=== PATIENT | female | born 1975 | race Caucasian/White ===

== ENCOUNTER → 2019-12-13 10:55 | Outpatient (CLI) | payer OTHER, SELFPAY ==
[2019-12-13 11:56] LABS: Alanine Aminotransferase 27 IU/L (<35); Albumin 4.7 g/dL (3.5-5.0); Albumin Globulin Ratio 1.4 (1.0-2.8); Alkaline Phosphatase 50 U/L (38-126); Aspartate Aminotransferase 28 IU/L (14-36); BUN Creatinine Ratio 16.9 (6-22); Bilirubin Total 0.7 mg/dL (0.2-1.3); Blood Urea Nitrogen 12 mg/dL (7-17); Calcium 9.4 mg/dL (8.4-10.2); Carbon Dioxide 28 mmol/L (22-32); Chloride 104 mmol/L (98-107); Estimated Glomerular Filt Rate > 60.0 mL/min (>60); Globulin 3.3 g/dL (1.7-4.1); Glucose 93 mg/dL (70-100); HEMOLYSIS < 15 (0-50); Lipase 429 U/L (23-300); Potassium 4.4 mmol/L (3.4-5.1); Sodium 140 mmol/L (137-145)
== END ==
PROVIDERS: PCP Registered Nurse; Referring Provider Registered Nurse; Visit Provider Registered Nurse
DX: R74.8 Abnormal levels of other serum enzymes (principal); K21.9 Gastro-esophageal reflux disease without esophagitis
CPT/HCPCS: 36415; 80053; 83690

== ENCOUNTER → 2019-12-19 09:06 | Outpatient (CLI) | payer OTHER, SELFPAY ==
--- NOTE | 2019-12-19 09:08 | DI.US.S_ITS ---
PROCEDURE: US ABDOMEN COMPLETE INDICATIONS: PANCREATITIS TECHNIQUE: Real-time scanning was performed of the abdominal and retroperitoneal organs, with image documentation. COMPARISON: None. FINDINGS: Liver: Liver is normal in size and homogeneous in echotexture. Gallbladder: The gallbladder wall measures 1.4 mm in diameter. No sludge, stones, pericholecystic fluid, or sonographic Heath sign. Biliary ducts: Intrahepatic bile ducts are non-dilated. Extrahepatic bile duct caliber measures 1.5 mm. Normal is 6-7 mm or less in diameter, or 10 mm or less post-cholecystectomy. Pancreas: Visualized portions of the pancreas are sonographically normal. Spleen: Spleen is normal in size and homogeneous in echotexture. Kidneys: Kidneys are normal in size and echotexture. Right kidney measures 11.0 cm long; left kidney measures 10.1 cm long. No hydronephrosis or nephrolithiasis. No solid masses. Aorta: Visualized aorta is normal in caliber at less than 3 cm. Iliacs: Proximal common iliac arteries are normal in caliber at less than 2.5 cm. IVC: Intrahepatic inferior vena cava is patent. Miscellaneous: No free abdominal fluid. IMPRESSION: 1. No cholelithiasis or findings to suggest choledocholithiasis or acute cholecystitis. Dictated by: Lula Finnegan M.D. on 12/19/2019 at 10:46 Approved by: Lula Finnegan M.D. on 12/19/2019 at 10:48
[2019-12-19 09:45] LABS: Add Manual Diff / Slide Review NO; Basophils Absolute Auto 0 /uL (0-100); Basophils Percent Auto 0.4 % (0-2); Eosinophils Absolute Auto 100 /uL (0-450); Hematocrit 40.8 % (36-46); Hemoglobin 13.4 g/dL (12.0-16.0); Lymphocytes Absolute Auto 1900 /uL (1100-4500); Lymphocytes Percent Auto 24.6 % (25-40); Mean Corpuscular HGB Conc 32.8 % (30-36); Mean Corpuscular Hemoglobin 29.7 PG (26-34); Mean Corpuscular Volume 90.5 fL (80-100); Monocytes Absolute Auto 500 /uL (0-900); Monocytes Percent Auto 5.9 % (3-14); Neutrophils Absolute Auto 5300 /uL (1500-7000); Neutrophils Percent Auto 68.1 % (50-75); Platelet Count 247 X10^3/uL (150-400); Red Cell Distribution Width 12.9 % (11.6-14.8); White Blood Cell Count 7.8 X10^3/uL (4.5-11.0)
[2019-12-19 10:23] LABS: C-Reactive Protein Quant < 0.5 mg/dL (<1.0)
== END ==
PROVIDERS: PCP Registered Nurse; Referring Provider Registered Nurse; Visit Provider Registered Nurse
DX: K85.90 Acute pancreatitis without necrosis or infection, unspecified (principal)
CPT/HCPCS: 36415; 76700; 85025; 86140

== ENCOUNTER → 2020-02-21 14:05 | Outpatient (CLI) | payer OTHER, SELFPAY ==
--- NOTE | 2020-02-21 14:06 | DI.MG.S_ITS ---
BILATERAL DIGITAL DIAGNOSTIC MAMMOGRAM 3D/2D: 02/21/2020 CLINICAL: Bilateral breast pain. Comparison is made to exams dated: 10/13/2016 mammogram and 10/21/2019 mammogram - outside location. The tissue of both breasts is extremely dense, which lowers the sensitivity of mammography. No significant masses, calcifications, or other findings are seen in either breast. Specifically, no finding to explain the patient's pain. IMPRESSION: NEGATIVE There is no abnormality seen in either breast to correspond with the diffuse pain. There is no mammographic evidence of malignancy. Return to annual mammogram screening schedule is recommended. Findings and recommendations were conveyed to the patient at time of exam. This exam was interpreted at Station ID: [id number]. NOTE: For mammograms, a report in lay terms will be sent to the patient. Approximately 15% of breast malignancies will not be visualized mammographically. In the management of a palpable breast mass, a negative mammogram must not discourage biopsy of a clinically suspicious lesion. Electronically Signed By: Cady robert/:02/21/2020 14:52:49 letter sent: Normal Exam ACR BI-RADS Category 1: Negative 3341F
== END ==
PROVIDERS: PCP Registered Nurse; Referring Provider Registered Nurse; Visit Provider Registered Nurse
DX: N64.4 Mastodynia (principal)
CPT/HCPCS: 77066; G0279

== ENCOUNTER 2020-12-14 18:55 | Emergency (ER) | payer OTHER, SELFPAY ==
[2020-12-14 19:12] VITALS: BP 130/80; PULSE 73; RESP 14; TEMP 36.8; O2SAT 100; BMI 22.9
[2020-12-14 20:05] LABS: Pregnancy Test Urine Negative (Negative)
[2020-12-14 20:23] LABS: Bacteria Urine None Seen; Culture Indicated Urine Cult Not Indicated; Mucus Urine 1+ (Negative); RBC Urine 0-1/HPF (0-5/HPF); Squamous Epithelial Cell Urine 0-1 /HPF (0-5/HPF); Transitional Epi Cells Urine 0-1/HPF (0-5/HPF); WBC Urine 0-1/HPF (0-5/HPF)
--- NOTE | 2020-12-14 21:07 | DI.US.S_ITS ---
PROCEDURE: US ABDOMEN COMPLETE INDICATIONS: ABDOMINAL PAIN TECHNIQUE: Real-time scanning was performed of the abdominal and retroperitoneal organs, with image documentation. COMPARISON: [facility], [place], US ABDOMEN COMPLETE, 12/19/2019, 9:24. FINDINGS: Liver: Liver is normal in size and homogeneous in echotexture. Gallbladder: No stones or wall thickening are identified. Wall thickness measures 1.8 mm. Biliary ducts: Intrahepatic bile ducts are non-dilated. Extrahepatic bile duct caliber measures 3.6 mm. Normal is 6-7 mm or less in diameter, or 10 mm or less post-cholecystectomy. Pancreas: Visualized portions of the pancreas are sonographically normal. Spleen: Spleen is normal in size and homogeneous in echotexture. Kidneys: Kidneys are normal in size and echotexture. Right kidney measures 11.0 cm long; left kidney measures 9.8 cm long. No hydronephrosis or nephrolithiasis. There is a focus of increased echogenicity within the mid left kidney measuring approximately 3 x 3 x 3 mm. Aorta: Visualized aorta is normal in caliber at less than 3 cm. Iliacs: Proximal common iliac arteries are normal in caliber at less than 2.5 cm. IVC: Intrahepatic inferior vena cava is patent. Miscellaneous: No free abdominal fluid. IMPRESSION: 1. Subcentimeter focus of increased echogenicity within the left kidney as above suspicious for angiomyolipoma. It was not identified on the 12/19/2019 abdomen ultrasound exam. Further evaluation with CT is recommended as indicated. The above findings are concordant with preliminary report. Dictated by: Magdalena Santizo M.D. on 12/15/2020 at 10:17 Approved by: Magdalena Santizo M.D. on 12/15/2020 at 10:19
[2020-12-14 21:30] VITALS: BP 116/68; PULSE 77; RESP 17; O2SAT 99
[2020-12-14 21:44] LABS: Alanine Aminotransferase 28 IU/L (<35); Albumin 4.8 g/dL (3.5-5.0); Albumin Globulin Ratio 1.4 (1.0-2.8); Alkaline Phosphatase 52 U/L (38-126); Aspartate Aminotransferase 35 IU/L (14-36); BUN Creatinine Ratio 17.2 (6-22); Blood Urea Nitrogen 10 mg/dL (7-17); Calcium 9.4 mg/dL (8.4-10.2); Carbon Dioxide 23 mmol/L (22-32); Chloride 102 mmol/L (98-107); Estimated Glomerular Filt Rate > 60.0 mL/min (>60); Globulin 3.4 g/dL (1.7-4.1); Glucose 79 mg/dL (70-100); HEMOLYSIS 33 (0-50); Lipase 245 U/L (23-300); Sodium 137 mmol/L (137-145); Total Protein 8.2 g/dL (6.3-8.2)
[2020-12-14 21:51] LABS: Add Manual Diff / Slide Review NO; Basophils Absolute Auto 0 /uL (0-100); Basophils Percent Auto 0.7 % (0-2); Eosinophils Absolute Auto 200 /uL (0-450); Eosinophils Percent Auto 2.8 % (2-4); Hematocrit 38.6 % (36-46); Hemoglobin 12.9 g/dL (12.0-16.0); Lymphocytes Absolute Auto 2600 /uL (1100-4500); Mean Corpuscular HGB Conc 33.5 % (30-36); Mean Corpuscular Hemoglobin 30.4 PG (26-34); Mean Corpuscular Volume 90.6 fL (80-100); Monocytes Absolute Auto 500 /uL (0-900); Monocytes Percent Auto 8.5 % (3-14); Neutrophils Absolute Auto 2800 /uL (1500-7000); Platelet Count 247 X10^3/uL (150-400); Red Blood Cell Count 4.26 X10^6/uL (4.0-5.2); Red Cell Distribution Width 12.8 % (11.6-14.8); White Blood Cell Count 6.1 X10^3/uL (4.5-11.0)
[2020-12-14 22:30] VITALS: BP 108/72; PULSE 76; RESP 18; O2SAT 98
[2020-12-14 23:30] VITALS: BP 112/65; PULSE 76; RESP 16; O2SAT 99
--- NOTE | 2020-12-15 00:15 | ED_ITS ---
HPI - General Adult General Chief complaint: Abdominal Pain Stated complaint: Possible Bladder Infection, Sent From Urgent in [place] Time Seen by Provider: 12/15/20 00:15 Source: patient Mode of arrival: Ambulatory Limitations: no limitations History of Present Illness HPI narrative: 45-year-old woman with a history of mild reflux presents with diffuse abdominal pain is been present for the last 72 hours. Typically more on the left side but she has noticed on both sides. Significant decreased appetite but is able to continue drinking clear liquids. She has been having difficulty sleeping the last few nights because of the pain. She did not have a bowel movement yesterday but noted that she did this morning and it did not influence her pain. It was slightly loose but not actually diarrhea, she describes no vomiting. No fevers, chest pain, dyspnea cough, orthopnea, lower extremity edema, headaches. Related Data Home Medications Medication Instructions Recorded Confirmed vitamin A 1 applictn TOP DAILY gram 12/13/19 09/14/20 Previous Rx's Medication Instructions Recorded cetirizine 10 mg tablet (Zyrtec) 10 mg PO DAILY 30 Days #30 tab 09/14/20 hydrocortisone 1 % topical 1 applic TOPICAL BID PRN #30 g 09/14/20 ointment (Anti-Itch (hydrocortisone)) Allergies Allergy/AdvReac Type Severity Reaction Status Date / Time clindamycin Allergy Verified 12/14/20 19:14 esomeprazole [From Nexium] Allergy Verified 12/14/20 19:14 Review of Systems Review of Systems Narrative: Remainder of complete review of systems is otherwise unremarkable except for that included in the HPI. Patient History Medical History Allergic rhinitis (~2014) Chicken pox (~1985) Dermatitis GERD (gastroesophageal reflux disease) (~2009) Hearing loss Hypothyroidism (~1991) Osteoarthritis (~2017) Seborrheic dermatitis (~2010) Surgical History Anesthesia History of eye surgery (~2006) Family History Mother Hypertension History of heart disease Sister Rucker's palsy Grandfather History of heart disease Hypertension Grandmother Hypertension Grandmother Cancer Social History Smoking Status: Never smoker Smoking Status: Never smoker alcohol intake frequency: holidays/special occasions only Substance Use Type: does not use Exam Narrative Exam Narrative: General: Healthy appearing, in no acute distress. Able to give a complete and coherent history. Well-nourished well-developed HEENT: Moist mucous membranes, normal sclera with reactive pupils, Neck: No JVD, supple Respiratory: Lungs are clear to auscultation, no wheezing no rales no rhonchi. Full and symmetrical air movement Cardiac: Regular rate and rhythm no murmurs no bruits Abdomen: Soft, mild diffuse tenderness, no rebound or guarding, good bowel tones, no flank pain Skin: Warm and dry, no rashes Neurologic: Grossly neurologically intact with no obvious asymmetries or abnormalities Extremities: No trauma, well perfused Psych: Cooperative, appropriate insight and affect Initial Vital Signs Initial Vital Signs: Vital Signs Temperature 98.2 F 12/14/20 19:12 Pulse Rate 73 12/14/20 19:12 Respiratory Rate 14 12/14/20 19:12 Blood Pressure 130/80 12/14/20 19:12 Pulse Oximetry 100 12/14/20 19:12 Course Orders Ordered: ED Orders 12/14/20 19:17 EKG-12 Lead Stat 12/14/20 19:59 Test Urine Stat Urine Microscopic Stat 12/14/20 21:07 US abdomen complete Stat 12/14/20 21:10 Comprehensive Metabolic Panel Stat Lipase Stat 12/14/20 21:45 Complete Blood Count AUTO DIFF Stat 12/15/20 00:23 XR abdomen min 2V Stat Vital Signs Vital signs: Vital Signs - 8 hr 12/14/20 19:12 Temperature 98.2 F Pulse Rate 73 Respiratory Rate 14 Blood Pressure 130/80 Pulse Oximetry 100 Medical Decision Making Lab Data Result diagrams: 12/14/20 21:45 12/14/20 21:10 Labs: Lab Results 12/14/20 12/14/20 12/14/20 Range/Units 19:59 19:59 21:10 WBC (4.5-11.0) X10^3/uL RBC (4.0-5.2) X10^6/uL Hgb (12.0-16.0) g/dL Hct (36-46) % MCV (80-100) fL MCH (26-34) PG MCHC (30-36) % RDW (11.6-14.8) % Plt Count (150-400) X10^3/uL Neut % (Auto) (50-75) % Lymph % (Auto) (25-40) % Bucks % (Auto) (3-14) % Eos % (Auto) (2-4) % Baso % (Auto) (0-2) % Neut # (Auto) (8439-2267) /uL Lymph # (Auto) (7061-8686) /uL Bucks # (Auto) (0-900) /uL Eos # (Auto) (0-450) /uL Baso # (Auto) (0-100) /uL Sodium 137 (137-145) mmol/L Potassium 4.0 (3.4-5.1) mmol/L Chloride 102 (98-107) mmol/L Carbon Dioxide 23 (22-32) mmol/L BUN 10 (7-17) mg/dL Creatinine 0.58 (0.52-1.04) mg/dL Estimated GFR > 60.0 (>60) mL/min BUN/Creatinine Ratio 17.2 (6-22) Glucose 79 (70-100) mg/dL Calcium 9.4 (8.4-10.2) mg/dL Total Bilirubin 1.0 (0.2-1.3) mg/dL AST 35 (14-36) IU/L ALT 28 (<35) IU/L Alkaline Phosphatase 52 (38-126) U/L Total Protein 8.2 (6.3-8.2) g/dL Albumin 4.8 (3.5-5.0) g/dL Globulin 3.4 (1.7-4.1) g/dL Albumin/Globulin Ratio 1.4 (1.0-2.8) Lipase 245 (23-300) U/L Urine RBC 0-1/hpf (0-5/HPF) Urine WBC 0-1/hpf (0-5/HPF) Ur Squamous Epith Cells 0-1 /hpf (0-5/HPF) Ur Transition Epith Cell 0-1/hpf (0-5/HPF) Urine Bacteria None seen (None) Urine Mucus 1+ H (Negative) Ur Culture Indicated? Cult not indicated Urine Test Negative (Negative) 09/13/21 Range/Units 21:45 WBC 6.1 (4.5-11.0) X10^3/uL RBC 4.26 (4.0-5.2) X10^6/uL Hgb 12.9 (12.0-16.0) g/dL Hct 38.6 (36-46) % MCV 90.6 (80-100) fL MCH 30.4 (26-34) PG MCHC 33.5 (30-36) % RDW 12.8 (11.6-14.8) % Plt Count 247 (150-400) X10^3/uL Neut % (Auto) 46.0 L (50-75) % Lymph % (Auto) 42.0 H (25-40) % Bucks % (Auto) 8.5 (3-14) % Eos % (Auto) 2.8 (2-4) % Baso % (Auto) 0.7 (0-2) % Neut # (Auto) 2800 (9013-4090) /uL Lymph # (Auto) 2600 (5589-7960) /uL Bucks # (Auto) 500 (0-900) /uL Eos # (Auto) 200 (0-450) /uL Baso # (Auto) 0 (0-100) /uL Sodium (137-145) mmol/L Potassium (3.4-5.1) mmol/L Chloride (98-107) mmol/L Carbon Dioxide (22-32) mmol/L BUN (7-17) mg/dL Creatinine (0.52-1.04) mg/dL Estimated GFR (>60) mL/min BUN/Creatinine Ratio (6-22) Glucose (70-100) mg/dL Calcium (8.4-10.2) mg/dL Total Bilirubin (0.2-1.3) mg/dL AST (14-36) IU/L ALT (<35) IU/L Alkaline Phosphatase (38-126) U/L Total Protein (6.3-8.2) g/dL Albumin (3.5-5.0) g/dL Globulin (1.7-4.1) g/dL Albumin/Globulin Ratio (1.0-2.8) Lipase (23-300) U/L Urine RBC (0-5/HPF) Urine WBC (0-5/HPF) Ur Squamous Epith Cells (0-5/HPF) Ur Transition Epith Cell (0-5/HPF) Urine Bacteria (None) Urine Mucus (Negative) Ur Culture Indicated? Urine Test (Negative) Urine Dip Bedside Urine Glucose Negative Bedside Urine Bilirubin - Negative Bedside Urine Ketone +++ 80 Urine Specific [place] 1.030 Bedside Urine Occult Blood +/- Bedside Urine pH 6.0 Bedside Urine Protein - Negative Bedside Urine Urobilinogen - Negative Bedside Urine Nitrite - Negative Bedside Urine Leukocytes - Negative Esterase Point of care testing: Urine Dip Bedside Urine Glucose Negative Bedside Urine Bilirubin - Negative Bedside Urine Ketone +++ 80 Urine Specific [place] 1.030 Bedside Urine Occult Blood +/- Bedside Urine pH 6.0 Bedside Urine Protein - Negative Bedside Urine Urobilinogen - Negative Bedside Urine Nitrite - Negative Bedside Urine Leukocytes - Negative Esterase Imaging Data US - abdomen: Radiologist's Impression: Unremarkable exam X-ray abdomen: My Impression: Fairly benign exam nonspecific bowel pattern there is a moderate amount of stool in the right lower quadrant. MDM Narrative Medical decision making narrative: 45-year-old woman with diffuse abdominal pain that is been present for approximately 3 days not localizing specifically. I suspect that constipation is playing a role. At this point there is no evidence of acute infection, pancreatitis, liver abnormalities, anemia, GI bleeding, or acute surgical abdomen. Findings are reviewed with the patient. Will send her home with magnesium citrate to see this helps with the overall pain. Encouraged her return if symptoms are not improving Discharge Plan Departure Patient Disposition: Home Clinical Impression: Abdominal pain Qualifiers: Abdominal location: generalized Qualified Code(s): R10.84 - Generalized abdominal pain Instructions: DI for Abdominal Pain-Adult Activity Restrictions/Additional Instructions: Thank you for coming in today Your workup was actually very reassuring. Your blood work did not show anything abnormal. You do not have pancreatitis, you are not anemic, you do not show signs of overwhelming infection in you do not have a bladder infection. I do not suspect a kidney infection or kidney stones. Your ultrasound showed a very normal gallbladder. Your x-ray suggested some stool in the right lower quadrant and this may be contributing to your pain. I am going to suggest that you drink the bottle of magnesium citrate to clean out your colon and see if this helps with the abdominal pain. If it does not, please feel free to return and the next step in your workup would be to do a CT scan of your abdomen I hope you feel better soon Prescriptions: No Action cetirizine [Zyrtec] 10 mg tablet 10 mg PO DAILY 30 Days Qty: 30 RF: 2 hydrocortisone [Anti-Itch (HC)] 1 % ointment 1 applic topical BID PRN (Reason: to affected area) Qty: 30 RF: 0 vitamin A Cream 1 applictn TOP DAILY RF: 0 Referrals: Mart Hair ARNP [Primary Care Provider] -
--- NOTE | 2020-12-15 00:23 | DI.RAD.S_ITS ---
PROCEDURE: XR ABDOMEN MIN 2V INDICATIONS: Abdominal pain TECHNIQUE: 2 views of the abdomen were acquired. COMPARISON: None. FINDINGS: Surgical changes and devices: None. Bowel: No definite transition point. There is mild diffuse stool. No pathologically dilated bowel loops seen. Soft tissues: No masses; visualized solid organ contours appear normal in size. No suspicious abdominal calcifications. Incidentally noted IUD. Bones: Mild levocurvature. IMPRESSION: No specific evidence of bowel obstruction seen at this time although if the patient's symptoms do not improve, continued surveillance with abdominal series radiographs could be performed. Dictated by: Mark Jacobo M.D. on 12/15/2020 at 8:53 Approved by: Mark Jacobo M.D. on 12/15/2020 at 8:56
[2020-12-15 00:30] VITALS: BP 112/66; PULSE 77; RESP 16; O2SAT 100
[2020-12-15 01:27] VITALS: O2SAT 98
[2020-12-15 01:28] VITALS: BP 106/67; PULSE 70; O2SAT 100
[2020-12-15] MEDS: MAGNESIUM CITRATE 300 ML SOLUTION PO (01:36)
== END 2020-12-15 01:37 | disposition home or self-care (01) ==
PROVIDERS: Emergency Provider Emergency Medicine; PCP Registered Nurse
DX: R10.84 Generalized abdominal pain (principal)
CPT/HCPCS: 36415; 74019; 76700; 80053; 81003; 81015; 81025; 83690; 85025; 93005; 93010; 99284

== ENCOUNTER → 2021-06-09 07:20 | Outpatient (CLI) | payer OTHER, SELFPAY ==
--- NOTE | 2021-06-09 07:22 | DI.MG.S_ITS ---
BILATERAL DIGITAL SCREENING MAMMOGRAM 3D/2D WITH CAD: 06/09/2021 CLINICAL: Routine screening. Comparison is made to exams dated: 02/21/2020 mammogram - [facility], 10/21/2019 mammogram, and 10/13/2016 mammogram - outside location. The tissue of both breasts is extremely dense, which lowers the sensitivity of mammography. Current study was also evaluated with a Computer Aided Detection (CAD) system. No significant masses, calcifications, or other findings are seen in either breast. There has been no significant interval change. IMPRESSION: NEGATIVE There is no mammographic evidence of malignancy. A 1 year screening mammogram is recommended. This exam was interpreted at Station ID: [id number]. NOTE: For mammograms, a report in lay terms will be sent to the patient. Approximately 15% of breast malignancies will not be visualized mammographically. In the management of a palpable breast mass, a negative mammogram must not discourage biopsy of a clinically suspicious lesion. Electronically Signed By: Cady robert/ari:06/09/2021 11:24:51 letter sent: Normal Exam ACR BI-RADS Category 1: Negative 3341F
== END ==
PROVIDERS: PCP Registered Nurse; Referring Provider Registered Nurse; Visit Provider Registered Nurse
DX: Z12.31 Encounter for screening mammogram for malignant neoplasm of breast (principal)
CPT/HCPCS: 77063; 77067

== ENCOUNTER → 2021-07-30 07:38 | Outpatient (CLI) | payer OTHER, SELFPAY ==
[2021-07-30 08:50] LABS: Free T3, Triiodothyronine Free 3.48 pg/mL (2.77-5.27); Free T4, Direct Thyroxine 1.08 ng/dL (0.78-2.19)
[2021-07-30 09:04] LABS: Thyroid Stimulating Hormone 2.71 uIU/mL (0.47-4.68)
== END ==
PROVIDERS: PCP Family Medicine; Referring Provider Family Medicine; Visit Provider Family Medicine
DX: E03.9 Hypothyroidism, unspecified (principal)
CPT/HCPCS: 36415; 84439; 84443; 84481

== ENCOUNTER → 2021-08-27 13:13 | Outpatient (CLI) | payer OTHER, SELFPAY | PROVIDERS: PCP Family Medicine; Visit Provider Nurse Practitioner Family | DX: R10.9 Unspecified abdominal pain (principal) | CPT/HCPCS: 87086 ==

== ENCOUNTER → 2021-09-06 09:26 | Outpatient (CLI) | payer OTHER, SELFPAY ==
[2021-09-09 00:08] LABS: Almond IgE <0.10 kU/L (Class 0); Cashew Nut IgE <0.10 kU/L (Class 0); Codfish Allergy IgE < 0.10 kU/L (Class 0); Egg White IgE <0.10 kU/L (Class 0); Hazelnut IgE <0.10 kU/L (Class 0); Milk IgE <0.10 kU/L (Class 0); Peanut IgE <0.10 kU/L (Class 0); Salmon Allergy IgE < 0.10 kU/L (Class 0); Scallop Allergy IgE < 0.10 kU/L (Class 0); Sesame seed Allergy IgE < 0.10 kU/L (Class 0); Shrimp IgE <0.10 kU/L (Class 0); Soybean IgE <0.10 kU/L (Class 0); Tuna Allergy IgE < 0.10 kU/L (Class 0); Walnut IgE <0.10 kU/L (Class 0); Wheat Allergy IgE < 0.10 kU/L (Class 0)
== END ==
PROVIDERS: PCP Family Medicine; Referring Provider Registered Nurse Diabetes Educator; Visit Provider Registered Nurse Diabetes Educator
DX: R14.0 Abdominal distension (gaseous) (principal)
CPT/HCPCS: 36415; 86003

== ENCOUNTER → 2022-07-12 08:11 | Outpatient (CLI) | payer OTHER, SELFPAY ==
--- NOTE | 2022-07-12 | DI.MG.S_ITS ---
BILATERAL DIGITAL SCREENING MAMMOGRAM 3D/2D WITH CAD: 07/12/2022 CLINICAL: Routine screening. Comparison is made to exams dated: 06/09/2021 mammogram, 02/21/2020 mammogram - [facility], and 10/13/2016 mammogram - outside location. Both breasts are extremely dense, which lowers the sensitivity of mammography (category d />75% glandular tissue). Current study was also evaluated with a Computer Aided Detection (CAD) system. No significant masses, calcifications, or other findings are seen in either breast. There has been no significant interval change. IMPRESSION: NEGATIVE There is no mammographic evidence of malignancy. A 1 year screening mammogram is recommended. Based on Tyrer-Cuzick model (a risk assessment model), the patient's lifetime risk is 22.0% and her 10 year risk is 4.0%. If a patient has an elevated risk, a more comprehensive evaluation should be considered and/or a referral to a genetic counselor. The [place] [employer], [place] [employer], and NCCN Guidelines advise the consideration of Breast MRI as an adjunct to screening mammography in patients whose Lifetime risk to develop breast cancer is 20% or higher. This exam was interpreted at Station ID: [id number]. NOTE: For mammograms, a report in lay terms will be sent to the patient. Approximately 15% of breast malignancies will not be visualized mammographically. In the management of a palpable breast mass, a negative mammogram must not discourage biopsy of a clinically suspicious lesion. Electronically Signed By: Cady robert/ari:07/12/2022 12:20:21 letter sent: Normal Exam ACR BI-RADS Category 1: Negative 3341F
== END ==
PROVIDERS: PCP Registered Nurse Diabetes Educator; Referring Provider Registered Nurse Diabetes Educator; Visit Provider Registered Nurse Diabetes Educator
DX: Z12.31 Encounter for screening mammogram for malignant neoplasm of breast (principal)
CPT/HCPCS: 77063; 77067

== ENCOUNTER 2022-07-19 16:23 | Emergency (ER) | payer OTHER, SELFPAY ==
[2022-07-19] VITALS (8 sets, daily range): BP systolic 117–135; BP diastolic 62–87; PULSE 69–102; RESP 18–20; TEMP 36.7; O2SAT 93–100; BMI 22.4
[2022-07-19 17:35] LABS: Add Manual Diff / Slide Review NO; Basophils Absolute Auto 0 /uL (0-100); Basophils Percent Auto 0.3 % (0-2); Eosinophils Absolute Auto 0 /uL (0-450); Eosinophils Percent Auto 0.1 % (2-4); Hematocrit 39.8 % (36-46); Hemoglobin 13.2 g/dL (12.0-16.0); Lymphocytes Absolute Auto 1500 /uL (1100-4500); Lymphocytes Percent Auto 15.9 % (25-40); Mean Corpuscular HGB Conc 33.2 % (30-36); Mean Corpuscular Hemoglobin 29.7 PG (26-34); Mean Corpuscular Volume 89.4 fL (80-100); Monocytes Absolute Auto 500 /uL (0-900); Monocytes Percent Auto 5.1 % (3-14); Neutrophils Absolute Auto 7600 /uL (1500-7000); Neutrophils Percent Auto 78.6 % (50-75); Platelet Count 258 X10^3/uL (150-400); Red Blood Cell Count 4.45 X10^6/uL (4.0-5.2); Red Cell Distribution Width 14.1 % (11.6-14.8); White Blood Cell Count 9.7 X10^3/uL (4.5-11.0)
[2022-07-19 17:38] LABS: Alanine Aminotransferase 29 IU/L (<35); Albumin 4.6 g/dL (3.5-5.0); Albumin Globulin Ratio 1.3 (1.0-2.8); Alkaline Phosphatase 48 U/L (38-126); Aspartate Aminotransferase 29 IU/L (14-36); Bilirubin Total 0.6 mg/dL (0.2-1.3); Blood Urea Nitrogen 7 mg/dL (7-17); Calcium 9.4 mg/dL (8.4-10.2); Carbon Dioxide 24 mmol/L (22-32); Chloride 100 mmol/L (98-107); Creatine Kinase 49 U/L (30-135); Estimated Glomerular Filt Rate > 60 mL/min (>60); Globulin 3.6 g/dL (1.7-4.1); Glucose 136 mg/dL (70-100); HEMOLYSIS < 15 (0-50); Lipase 268 U/L (23-300); Potassium 3.4 mmol/L (3.4-5.1); Sodium 136 mmol/L (137-145); Total Protein 8.2 g/dL (6.3-8.2)
[2022-07-19 17:50] LABS: Troponin I < 0.012 ng/mL (0.01-0.034)
--- NOTE | 2022-07-19 20:32 | ED_ITS ---
HPI - Abdominal Pain General Chief Complaint: Abdominal Pain Stated Complaint: abdominal issues, pain Time Seen by Provider: 07/19/22 20:32 Source: patient Mode of arrival: Ambulatory History of Present Illness HPI narrative: Patient is a healthy 46-year-old female who presents today with epigastric pain and upper abdominal pain ongoing for the last 5-6 days. She says sometimes it goes into her chest sometimes it goes down to her lower abdomen. Today she got chilled the pain seems to be getting a little bit worse. She tried taking Tums at home it did not seem to help. She is mildly nauseous but no vomiting. Denies any fever. No back pain. Currently not having any lower abdominal pain. No chest pain now. Previously seen by PCP and 09/06/2021 for some abdominal pain bloating thought to be related to stress. Related Data Home Medications Medication Instructions Recorded Confirmed levonorgestrel 21 mcg/24 hours (8 intrauterine 09/06/21 12/23/21 yrs) 52 mg intrauterine device (Mirena) Allergies Allergy/AdvReac Type Severity Reaction Status Date / Time amoxicillin Allergy Verified 07/19/22 16:37 clindamycin Allergy Verified 12/23/21 11:07 esomeprazole [From Nexium] Allergy Verified 12/23/21 11:07 Review of Systems Review of Systems ROS Unobtainable: All systems reviewed & are unremarkable except as noted in HPI and below Patient History Medical History Allergic rhinitis (~2014) Chicken pox (~1985) Dermatitis GERD (gastroesophageal reflux disease) (~2009) Hearing loss Hypothyroidism (~1991) Osteoarthritis (~2017) Seborrheic dermatitis (~2010) Surgical History Anesthesia History of eye surgery (~2006) Family History Mother Hypertension History of heart disease Sister Rucker's palsy Grandfather History of heart disease Hypertension Grandmother Hypertension Grandmother Cancer Social History Smoking Status: Never smoker Smoking Status: Never smoker alcohol intake frequency: holidays/special occasions only Substance Use Type: does not use Exam Initial Vital Signs Initial Vital Signs: Vital Signs Temperature 98.1 F 07/19/22 16:37 Pulse Rate 102 H 07/19/22 16:37 Respiratory Rate 18 07/19/22 16:37 Blood Pressure 133/87 07/19/22 16:37 Pulse Oximetry 99 07/19/22 16:37 Oxygen Delivery Method Room Air 07/19/22 16:37 GENERAL: Alert well-appearing 46-year-old and in no acute distress. HEENT: Head atraumatic,EOMI, pupils reactive, face symmetric, moist mucous membranes CARDIOVASCULAR: Regular rate and rhythm without murmurs, rubs or gallops. RESPIRATORY: Breath sounds equal bilaterally, no wheezes rales or rhonchi. ABDOMEN: Soft, mild epigastric tenderness mild right upper quadrant pain no lower abdominal pain minimal left upper quadrant pain no guarding or rebound, no lower abdominal pain : No CVA tenderness EXTREMITIES: Normal range of motion, no clubbing or edema. Neurovascularly intact NEUROLOGICAL: Alert and oriented x4. SKIN: Warm, dry, no laceration, no petechiae, no rashes or lesions. Course Orders Ordered: ED Orders 07/19/22 19:51 EKG-12 Lead Stat 07/19/22 20:41 US abdomen limited Stat Discontinued Medications Ketorolac Tromethamine (Ketorolac 30 Mg/Ml Vial) 15 mg IV NOW ONE Stop: 07/19/22 20:42 Last Admin: 07/19/22 20:56 Dose: 15 mg Documented By: [facility]NG Ondansetron HCl (Ondansetron 4 Mg Odt) 4 mg PO NOW PRN PRN Reason: Nausea And Vomiting Ondansetron HCl (Ondansetron 4 Mg/2 Ml Inj) 4 mg IV NOW PRN PRN Reason: Nausea And Vomiting Vital Signs Vital signs: Vital Signs - 8 hr 07/19/22 20:30 07/19/22 20:30 07/19/22 21:00 Pulse Rate 75 Respiratory Rate 20 Blood Pressure 117/68 126/71 Pulse Oximetry 100 Oxygen Delivery Method Room Air 07/19/22 21:00 07/19/22 21:30 07/19/22 21:30 Pulse Rate 69 80 Respiratory Rate Blood Pressure 118/66 Pulse Oximetry 100 100 Oxygen Delivery Method 07/19/22 22:00 07/19/22 22:00 07/19/22 22:30 Pulse Rate 80 Respiratory Rate Blood Pressure 122/65 125/62 Pulse Oximetry 99 Oxygen Delivery Method 07/19/22 22:30 07/19/22 23:00 Pulse Rate 74 71 Respiratory Rate 20 Blood Pressure Pulse Oximetry 97 96 Oxygen Delivery Method MDM - Abdominal Pain Lab Data 07/19/22 17:15 07/19/22 17:15 Labs: Lab Results 07/19/22 07/19/22 Range/Units 17:15 17:15 WBC 9.7 (4.5-11.0) X10^3/uL RBC 4.45 (4.0-5.2) X10^6/uL Hgb 13.2 (12.0-16.0) g/dL Hct 39.8 (36-46) % MCV 89.4 (80-100) fL MCH 29.7 (26-34) PG MCHC 33.2 (30-36) % RDW 14.1 (11.6-14.8) % Plt Count 258 (150-400) X10^3/uL Neut % (Auto) 78.6 H (50-75) % Lymph % (Auto) 15.9 L (25-40) % [place] % (Auto) 5.1 (3-14) % Eos % (Auto) 0.1 L (2-4) % Baso % (Auto) 0.3 (0-2) % Neut # (Auto) 7600 H (2047-6635) /uL Lymph # (Auto) 1500 (0869-1758) /uL [place] # (Auto) 500 (0-900) /uL Eos # (Auto) 0 (0-450) /uL Baso # (Auto) 0 (0-100) /uL Sodium 136 L (137-145) mmol/L Potassium 3.4 (3.4-5.1) mmol/L Chloride 100 (98-107) mmol/L Carbon Dioxide 24 (22-32) mmol/L BUN 7 (7-17) mg/dL Creatinine 0.54 (0.52-1.04) mg/dL Estimated GFR > 60 (>60) mL/min BUN/Creatinine Ratio 13.0 (6-22) Glucose 136 H (70-100) mg/dL Calcium 9.4 (8.4-10.2) mg/dL Total Bilirubin 0.6 (0.2-1.3) mg/dL AST 29 (14-36) IU/L ALT 29 (<35) IU/L Alkaline Phosphatase 48 (38-126) U/L Total Creatine Kinase 49 (30-135) U/L CK-MB (CK-2) TNP CK-MB (CK-2) Rel Index TNP Troponin I < 0.012 (0.01-0.034) ng/mL Total Protein 8.2 (6.3-8.2) g/dL Albumin 4.6 (3.5-5.0) g/dL Globulin 3.6 (1.7-4.1) g/dL Albumin/Globulin Ratio 1.3 (1.0-2.8) Lipase 268 (23-300) U/L Point of care testing: Point of Care Testing Test Results Negative Urine Dip Bedside Urine Glucose Negative Bedside Urine Bilirubin - Negative Bedside Urine Ketone - Negative Urine Specific [place] 1.015 Bedside Urine Occult Blood +/- Bedside Urine pH 7.0 Bedside Urine Protein - Negative Bedside Urine Urobilinogen - Negative Bedside Urine Nitrite - Negative Bedside Urine Leukocytes - Negative Esterase Imaging Data US - abdomen: Radiologist's Impression: PROCEDURE: US ABDOMEN LIMITED ? INDICATIONS:? RUQ PAIN ? TECHNIQUE:? Real-time focused scanning was performed of the abdomen, with image documentation.? ? COMPARISON:? [facility], [place], US ABDOMEN COMPLETE, 12/14/2020, 21:59. ? FINDINGS:? Liver measures 14 cm.? Gallbladder is within normal limits, but there is focal tenderness in the right upper quadrant.? CBD measures 3 mm.? Pancreas is within normal limits.? Gallbladder is mildly distended. ? IMPRESSION:? Mildly distended gallbladder and focal tenderness, but without stones.? Consider correlation with nuclear medicine HIDA study to evaluate for functional gallbladder disorder.? Nondilated biliary tree. ? ? Dictated by: Herson Kumar M.D. on 07/19/2022 at 22:24 ? ? Approved by: Herson Kumar M.D. on 07/19/2022 at 22:25 ? ECG Data Interpretation: Normal sinus rhythm rate 75 OR interval 136 QRS [address] changes no T- wave inversions similar to previous EKGs MDM Narrative Medical decision making narrative: Patient is a healthy 46-year-old female who presents with upper abdominal pain. Mostly epigastric, ongoing for the last 5-6 days. Blood work is overall reassuring without leukocytosis anemia, electrolyte abnormality, CJ, elevated bilirubin or LFTs. Troponin and EKG are also check due to some radiation of chest pain. She is given Toradol and Zofran here in the emergency department wh ich helps a little. Ultrasound shows mildly distended gallbladder and some focal tenderness without stones. Recommended a HIDA scan. Common bile duct is 3 mm. No evidence of acute cholecystitis or acute cholelithiasis. No evidence of ascending cholangitis. I do not see need for CT at this time she is no lower abdominal pain. I did discuss with her she needs further evaluation with probable HIDA scan as an outpatient. Discharge Plan Departure Patient Disposition: Home Clinical Impression: Gallbladder pain Instructions: DI for General Gallbladder Conditions, DI for HIDA Scan Activity Restrictions/Additional Instructions: *You have been diagnosed with gallbladder abdominal *What to do: I suspect that you are having gallbladder issues. However you do not have any gallstones there is no evidence of infection. It is recommended that you have a HIDA scan please talk to your PCP about this. At this time blood work is overall reassuring *Continue to take medications as directed Ibuprofen 600 mg every 6 hours if needed for [id number] *Follow up with your primary care provider in 2-3 days or call [phone] *Return to ER if you should have increasing pain persistent vomiting [or] any new, worsening or concerning symptoms Prescriptions: No Action Mirena 20 mcg/24 hours (7 yrs) 52 mg intrauterine device intrauterine Referrals: Kunal Callaway ARNP [Primary Care Provider] - Stand Alone Forms: Patient Portal/API
--- NOTE | 2022-07-19 20:41 | DI.US.S_ITS ---
PROCEDURE: US ABDOMEN LIMITED INDICATIONS: RUQ PAIN TECHNIQUE: Real-time focused scanning was performed of the abdomen, with image documentation. COMPARISON: [facility], US, US ABDOMEN COMPLETE, 12/14/2020, 21:59. FINDINGS: Liver measures 14 cm. Gallbladder is within normal limits, but there is focal tenderness in the right upper quadrant. CBD measures 3 mm. Pancreas is within normal limits. Gallbladder is mildly distended. IMPRESSION: Mildly distended gallbladder and focal tenderness, but without stones. Consider correlation with nuclear medicine HIDA study to evaluate for functional gallbladder disorder. Nondilated biliary tree. Dictated by: Herson Kumar M.D. on 07/19/2022 at 22:24 Approved by: Herson Kumar M.D. on 07/19/2022 at 22:25
[2022-07-19] MEDS: KETOROLAC 30 MG/ML VIAL 15 MG IV (20:56)
== END 2022-07-19 23:08 | disposition home or self-care (01) ==
PROVIDERS: Emergency Medicine; Emergency Provider Emergency Medicine; PCP Registered Nurse Diabetes Educator
DX: K82.9 Disease of gallbladder, unspecified (principal); R07.9 Chest pain, unspecified; R11.0 Nausea
CPT/HCPCS: 36415; 76705; 80053; 81003; 81025; 82550; 83690; 84484; 85025; 93005; 93010; 96374; 99284; J1885

== ENCOUNTER → 2022-08-19 07:02 | Outpatient (CLI) | payer OTHER, SELFPAY ==
[2022-08-19 08:48] LABS: Cholesterol 197 mg/dL (140-199); Glucose 74 mg/dL (70-100); Triglycerides 51 mg/dL (35-150)
[2022-08-19 08:56] LABS: HDL Cholesterol 124 mg/dL (40-60); LDL Cholesterol Calculated 63 mg/dL (<100)
[2022-08-19 09:15] LABS: TSH w/ Reflex to FT4 0.09 uIU/mL (0.47-4.68)
[2022-08-19 09:40] LABS: Free T4, Direct Thyroxine 0.98 ng/dL (0.78-2.19)
== END ==
PROVIDERS: PCP Registered Nurse Diabetes Educator; Referring Provider Registered Nurse Diabetes Educator; Visit Provider Registered Nurse Diabetes Educator
DX: E03.9 Hypothyroidism, unspecified (principal); Z00.00 Encounter for general adult medical examination without abnormal findings
CPT/HCPCS: 36415; 80061; 82947; 84439; 84443

== ENCOUNTER → 2022-09-01 09:40 | Outpatient (CLI) | payer OTHER, SELFPAY ==
--- NOTE | 2022-09-01 09:41 | DI.NM.S_ITS ---
PROCEDURE: NM HIDA WITH CCK PHARMACEUTICAL: 5.4 mCi Tc-99m mebrofenin IV; 1.2 mcg CCK IV. INDICATIONS: eval RUQ pain TECHNIQUE: Following intravenous administration of Tc-99m mebrofenin, sequential anterior abdominal images were obtained. To evaluate the contractile response of the gallbladder in response to Cholecystokinin (CCK), sincalide (0.02 ?g/kg) was administered by slow intravenous infusion approximately 60 minutes after the administration of the radiopharmaceutical. Sequential imaging was continued for 30 minutes after the start of CCK infusion. Gallbladder ejection fraction was calculated. COMPARISON: [facility], ABDOMEN LIMITED, 07/19/2022, 21:07. FINDINGS: Biliary scan: There is normal tracer uptake and excretion by the liver. There is normal visualization of the intrahepatic ducts, common bile duct, and gallbladder. There is normal tracer transit into the duodenum. CCK stimulation: There is normal contractile response of the gallbladder to CCK infusion. The calculated gallbladder ejection fraction is 76% ; normal values are above 35%. It has been shown that any patient abdominal pain after CCK administration is related to the rate of CCK injection, rather than to any underlying gallbladder disease (Clinical Nuclear Medicine 2012; 37: 63-70. Journal of Nuclear Medicine 2014; 55: 1-9). IMPRESSION: 1. Normal filling of gallbladder. No evidence for acute cholecystitis. 2. Normal contractile response of gallbladder to CCK stimulation. Dictated by: Sheila Brownlee M.D. on 09/01/2022 at 13:19 Approved by: Sheila Brownlee M.D. on 09/01/2022 at 13:22
== END ==
PROVIDERS: PCP Registered Nurse Diabetes Educator; Referring Provider Registered Nurse Diabetes Educator; Visit Provider Registered Nurse Diabetes Educator
DX: R10.11 Right upper quadrant pain (principal)
CPT/HCPCS: 78227; A9537; J2805